=== PATIENT | male | born 1985 | race Caucasian/White ===

== ENCOUNTER 2023-05-25 20:54 | Inpatient (IN) | payer MEDICARE, MEDICAID ==
[~2023-05-25] VITALS: Ht 167.6 cm; Wt 99.1 kg
[~2023-05-25 20:54] MED LIST: ATOR10TA69 PO; DILT-95 PO; DIVA250T4 PO; FENO160T11 PO; FOLI-130 PO; LEVE1000 PO; METO25XL PO; MVITFE; QUET100T PO
[2023-05-25] MEDS ORDERED: ACETAMINOPHEN 325 MG TABLET PO ONE (23:15)
[2023-05-26] MEDS ORDERED: HALOPERIDOL 5 MG TABLET PO PRN (00:15)
[2023-05-26] MEDS ORDERED: ZOLPIDEM TARTRATE 10 MG TABLET PO PRN (00:15)
[2023-05-26] MEDS ORDERED: LORazepam 1 MG TABLET PO PRN (00:15)
[2023-05-26] MEDS ORDERED: ONDANSETRON HCL 4 MG/2 ML VIAL IVP PRN (02:00)
[2023-05-26] MEDS: HEPARIN SODIUM,PORCINE 5,000 UNITS/ML VIAL SQ SCH ×3 (08:55→23:50)
[2023-05-26] MEDS: DOCUSATE SODIUM 100 MG CAPSULE PO SCH ×2 (08:55→21:15)
[2023-05-26] MEDS: ACETAMINOPHEN 325 MG TABLET PO PRN ×3 (10:41→21:54)
[2023-05-26 10:50] LABS: BASOPHILS % (AUTO) 0.3 % (0.0-2.0); EOSINOPHILS % (AUTO) 1.6 % (1.0-6.0); HEMATOCRIT 41.7 % (41-53); HEMOGLOBIN 13.4 g/dL (13.5-17.5); LYMPHOCYTES # (AUTO) 1.3 K/uL (1.0-4.8); LYMPHOCYTES % (AUTO) 19.2 % (22.0-44.0); MEAN CORPUSCULAR HEMOGLOBIN 28.5 pg (26.0-34.0); MEAN CORPUSCULAR HGB CONC 32.2 G/dL (31.0-37.0); MEAN CORPUSCULAR VOLUME 89 fL (80-100); MONOCYTES # (AUTO) 0.5 K/uL (0.1-1.0); MONOCYTES % (AUTO) 8.1 % (2.0-9.0); NEUTROPHILS # (AUTO) 4.6 K/uL (1.8-7.7); NEUTROPHILS % (AUTO) 70.8 % (40.0-70.0); PLATELET COUNT (AUTO) 226 K/uL (150-450); RED BLOOD CELL COUNT(AUTO) 4.71 MIL/uL (4.50-5.90); RED CELL DISTRIBUTION WIDTH 17.8 % (11.5-14.5)
[2023-05-26 10:55] LABS: AMPHET/METH SCREEN,URINE NEGATIVE (NEGATIVE); BARBITURATE SCREEN, URINE NEGATIVE (NEGATIVE); BENZODIAZEPINES SCREEN,URINE NEGATIVE (NEGATIVE); CANNABINOID SCREEN,URINE NEGATIVE (NEGATIVE); COCAINE SCREEN,URINE NEGATIVE (NEGATIVE); METHADONE SCREEN, URINE NEGATIVE (NEGATIVE); OPIATE SCREEN,URINE NEGATIVE (NEGATIVE); PHENCYCLIDINE SCREEN,URINE NEGATIVE (NEGATIVE)
[2023-05-26 11:02] LABS: ANION GAP 12 mmol/L (8-16); CALCIUM, TOTAL 9.2 mg/dL (8.8-10.5); CARBON DIOXIDE 24 mmol/L (22-29); CHLORIDE 101 mmol/L (98-107); CREATININE 0.45 mg/dL (0.60-1.30); GLOMERULAR FILTR. RATE CALC > 60 mL/min (>60); GLUCOSE,RANDOM 260 mg/dL (70-110); POTASSIUM 3.8 mmol/L (3.5-5.1); SODIUM SERUM 137 mmol/L (136-145)
[2023-05-26 11:07] LABS: ALANINE AMINOTRANSFERASE 19 U/L (12-78); ALBUMIN 2.9 g/dL (3.4-5.0); ALKALINE PHOSPHATASE 78 U/L (46-116); ASPARTATE AMINOTRANSFERASE 23 U/L (15-37); BILIRUBIN,TOTAL 0.2 mg/dL (0.1-1.0)
[2023-05-26] MEDS ORDERED: MULT-1390 PO (13:51)
[2023-05-26] MEDS ORDERED: QUET200T PO (13:51)
[2023-05-26] MEDS ORDERED: DIVA-112 PO (13:51)
[2023-05-26] MEDS ORDERED: FERR325T23 PO (13:51)
[2023-05-26] MEDS: ONDANSETRON HCL 4 MG TABLET PO PRN (13:58)
[2023-05-26] MEDS ORDERED: ONDANSETRON HCL 4 MG/2 ML VIAL PO PRN (14:00)
[2023-05-26 20:30] VITALS: BP 110/78; PULSE 108; RESP 20; TEMP 97.6
[2023-05-27] MEDS: ONDANSETRON HCL 4 MG TABLET PO PRN ×2 (02:50→11:33)
[2023-05-27 02:55] VITALS: BP 124/74; PULSE 96; RESP 20; TEMP 98.6
[2023-05-27 07:40] VITALS: BP 126/77; PULSE 106; RESP 18; TEMP 98.4
[2023-05-27] MEDS: HEPARIN SODIUM,PORCINE 5,000 UNITS/ML VIAL SQ SCH ×4 (08:00→23:45)
[2023-05-27] MEDS: DOCUSATE SODIUM 100 MG CAPSULE PO SCH ×2 (08:00→20:14)
[2023-05-27] MEDS: ACETAMINOPHEN 325 MG TABLET PO PRN ×2 (08:00→23:34)
[2023-05-27] MEDS: HYDROGEN PEROXIDE 473 ML SOLUTION TP SCH (08:05)
[2023-05-27] MEDS: BACITRACIN 28 GM OINTMENT TP SCH (08:05)
[2023-05-27] MEDS: POVIDONE-IODINE 10% 120 ML SOLUTION TP SCH (08:05)
[2023-05-27] MEDS ORDERED: DEXTROSE 50%-WATER 25 GM/50 ML SYRINGE IVP PRN (12:15)
[2023-05-27 15:25] VITALS: BP 122/72; PULSE 94; RESP 20; TEMP 97.8
[2023-05-27] MEDS: INSULIN LISPRO 100 UNITS/ML SQ PRN ×2 (17:21→20:14)
[2023-05-27 17:46] LABS: GLUCOMETER DEV NAME(LOC) 4E.2
[2023-05-27 19:30] VITALS: BP 130/87; PULSE 107; RESP 20; TEMP 97.7
[2023-05-27] MEDS: DiphenhydrAMINE HCL 25 MG CAPSULE PO PRN (21:58)
[2023-05-28] MEDS ORDERED: HALOPERIDOL LACTATE 5 MG/ML VIAL IM ONE (02:15)
[2023-05-28 04:00] VITALS: BP 107/64; PULSE 84; RESP 18; TEMP 97.5
[2023-05-28 06:36] LABS: GLUCOMETER DEV NAME(LOC) 4E.2
[2023-05-28] MEDS: HEPARIN SODIUM,PORCINE 5,000 UNITS/ML VIAL SQ SCH ×2 (07:31→15:17)
[2023-05-28] MEDS: DOCUSATE SODIUM 100 MG CAPSULE PO SCH ×2 (07:31→20:14)
[2023-05-28] MEDS: POVIDONE-IODINE 10% 120 ML SOLUTION TP SCH (07:32)
[2023-05-28] MEDS: BACITRACIN 28 GM OINTMENT TP SCH (07:32)
[2023-05-28] MEDS: HYDROGEN PEROXIDE 473 ML SOLUTION TP SCH (07:32)
[2023-05-28 08:00] VITALS: BP 122/80; PULSE 95; RESP 20; TEMP 97.7
[2023-05-28 08:06] LABS: GLUCOMETER DEV NAME(LOC) 6N.1
[2023-05-28] MEDS: ACETAMINOPHEN 325 MG TABLET PO PRN ×2 (08:24→17:31)
[2023-05-28] MEDS: DiphenhydrAMINE HCL 25 MG CAPSULE PO PRN ×2 (10:56→17:31)
[2023-05-28] MEDS: INSULIN LISPRO 100 UNITS/ML SQ PRN ×3 (11:24→20:21)
[2023-05-28 11:36] LABS: GLUCOMETER DEV NAME(LOC) 4E.2
[2023-05-28 18:11] LABS: GLUCOMETER DEV NAME(LOC) 4E.2
[2023-05-28 19:20] VITALS: BP 136/74; PULSE 107; RESP 20; TEMP 98.4
[2023-05-28] MEDS: DIVALPROEX SODIUM 500 MG DR TABLET PO SCH (20:14)
[2023-05-28] MEDS: QUEtiapine FUMARATE 200 MG TABLET PO SCH (20:14)
[2023-05-28] MEDS: LITHIUM CARBONATE 300 MG CAPSULE PO SCH (20:15)
[2023-05-29] MEDS: HEPARIN SODIUM,PORCINE 5,000 UNITS/ML VIAL SQ SCH ×3 (00:34→16:00)
[2023-05-29] MEDS ORDERED: HALOPERIDOL LACTATE 5 MG/ML VIAL IM ONE (01:00)
[2023-05-29] MEDS ORDERED: LORazepam 2 MG/ML VIAL IM ONE (01:00)
[2023-05-29] MEDS ORDERED: SODIUM CHLORIDE 0.9% 1,000 ML ONE (01:48)
[2023-05-29] MEDS ORDERED: SODIUM CHLORIDE 0.9% 500 ML IV ONE ×2 (01:51→02:30)
[2023-05-29] MEDS ORDERED: LevETIRAcetam 1,000 MG in DEXTROSE 5%-WATER 100 ML IV SCH ×2 (02:00→14:00)
[2023-05-29] MEDS ORDERED: LevETIRAcetam 1,500 MG in DEXTROSE 5%-WATER 100 ML IV ONE (02:15)
[2023-05-29] MEDS: ACETAMINOPHEN 325 MG TABLET PO PRN ×3 (02:36→15:32)
[2023-05-29 02:43] VITALS: BP 115/63; PULSE 113; RESP 20
[2023-05-29] MEDS ORDERED: LORazepam 2 MG/ML VIAL IVP ONE ×2 (03:00→16:30)
[2023-05-29 06:06] VITALS: BP 106/55; PULSE 88; RESP 20; TEMP 97.9
[2023-05-29 08:13] VITALS: BP 118/69; PULSE 92; RESP 18; TEMP 97.6
[2023-05-29] MEDS: DOCUSATE SODIUM 100 MG CAPSULE PO SCH (09:42)
[2023-05-29] MEDS: HYDROGEN PEROXIDE 473 ML SOLUTION TP SCH (09:43)
[2023-05-29] MEDS: DIVALPROEX SODIUM 500 MG DR TABLET PO SCH (09:43)
[2023-05-29] MEDS: QUEtiapine FUMARATE 200 MG TABLET PO SCH (09:43)
[2023-05-29] MEDS: LITHIUM CARBONATE 300 MG CAPSULE PO SCH (09:43)
[2023-05-29] MEDS: POVIDONE-IODINE 10% 120 ML SOLUTION TP SCH (09:44)
[2023-05-29] MEDS: BACITRACIN 28 GM OINTMENT TP SCH (09:44)
[2023-05-29 11:51] LABS: GLUCOMETER DEV NAME(LOC) 6N.2B
[2023-05-29 11:51] LABS: GLUCOMETER DEV NAME(LOC) 6N.2B
[2023-05-29 11:53] VITALS: BP 108/70; PULSE 101; RESP 18; TEMP 98.1
[2023-05-29] MEDS: INSULIN LISPRO 100 UNITS/ML SQ PRN (12:09)
[2023-05-29 12:56] LABS: GLUCOMETER DEV NAME(LOC) 5S.2C
[2023-05-29] MEDS ORDERED: SODIUM CHLORIDE 0.9% 250 ML IV ONE (14:08)
[2023-05-29] MEDS ORDERED: QUET200T PO (15:03)
[2023-05-29] MEDS ORDERED: LITH300C3 PO ×2 (15:06→21:26)
[2023-05-29] MEDS ORDERED: QUET200T30 PO (21:26)
[2023-05-29] MEDS ORDERED: DIVA-112 PO (21:26)
== END 2023-05-29 17:00 | disposition home health service (06) | DRG 885 ==
LOC: EMS 20:55 → AHU 05-26 08:03 → 6N 05-26 18:01 → 5S 05-29 04:00
PROVIDERS: ADMIT Psychiatry & Neurology Psychiatry; ATTEND Psychiatry & Neurology Psychiatry
DX: F25.9 Schizoaffective disorder, unspecified (principal); G82.20 Paraplegia, unspecified; R45.851 Suicidal ideations; R45.850 Homicidal ideations; F32.9 Major depressive disorder, single episode, unspecified; Z93.3 Colostomy status; E66.9 Obesity, unspecified; Z68.35 Body mass index [BMI] 35.0-35.9, adult; R06.82 Tachypnea, not elsewhere classified; E11.9 Type 2 diabetes mellitus without complications; I10 Essential (primary) hypertension; G40.909 Epilepsy, unspecified, not intractable, without status epilepticus; L89.90 Pressure ulcer of unspecified site, unspecified stage; E78.00 Pure hypercholesterolemia, unspecified; Z74.01 Bed confinement status; Z79.899 Other long term (current) drug therapy; Z98.1 Arthrodesis status
CPT/HCPCS: 70450; 80053; 80307; 82140; 82962; 83036; 85025; 87081; 99285; G0480; J0712; J1630; J1644; J2060; J7030; J7040; J7050; J7060; Q0162

== ENCOUNTER 2023-11-14 11:59 | Emergency (ER) | payer MEDICARE, MEDICAID ==
[~2023-11-14] VITALS: Ht 170.2 cm; Wt 86.4 kg
[~2023-11-14 11:59] MED LIST changes: -ATOR10TA69 PO; -DILT-95 PO; +DIVA-112 PO; -DIVA250T4 PO; -FENO160T11 PO; -FOLI-130 PO; +LITH300C3 PO; -METO25XL PO; +MULT-1390 PO; -MVITFE; -QUET100T PO; +QUET200T PO; +QUET200T30 PO
[2023-11-14 12:08] VITALS: TEMP 97.9
[2023-11-14 12:38] LABS: BASOPHILS % (AUTO) 0.3 % (0.0-2.0); EOSINOPHILS % (AUTO) 1.6 % (1.0-6.0); HEMATOCRIT 42.8 % (41-53); HEMOGLOBIN 14.2 g/dL (13.5-17.5); LYMPHOCYTES # (AUTO) 1.2 K/uL (1.0-4.8); LYMPHOCYTES % (AUTO) 22.4 % (22.0-44.0); MEAN CORPUSCULAR HEMOGLOBIN 29.8 pg (26.0-34.0); MEAN CORPUSCULAR HGB CONC 33.3 G/dL (31.0-37.0); MEAN CORPUSCULAR VOLUME 90 fL (80-100); MONOCYTES # (AUTO) 0.4 K/uL (0.1-1.0); MONOCYTES % (AUTO) 7.3 % (2.0-9.0); NEUTROPHILS # (AUTO) 3.6 K/uL (1.8-7.7); NEUTROPHILS % (AUTO) 68.4 % (40.0-70.0); PLATELET COUNT (AUTO) 194 K/uL (150-450); RED BLOOD CELL COUNT(AUTO) 4.77 MIL/uL (4.50-5.90); WHITE BLOOD COUNT (AUTO) 5.3 K/uL (4.5-11.0)
[2023-11-14 12:46] LABS: ANION GAP 7 mmol/L (8-16); CALCIUM, TOTAL 9.7 mg/dL (8.8-10.5); CARBON DIOXIDE 29 mmol/L (22-29); CHLORIDE 102 mmol/L (98-107); CREATININE 0.48 mg/dL (0.60-1.30); GLOMERULAR FILTR. RATE CALC > 60 mL/min (>60); GLUCOSE,RANDOM 102 mg/dL (70-110); POTASSIUM 3.8 mmol/L (3.5-5.1); SODIUM SERUM 138 mmol/L (136-145); UREA NITROGEN, BLOOD 11 mg/dL (7-18)
[2023-11-14 12:51] LABS: ALANINE AMINOTRANSFERASE 26 U/L (12-78); ALBUMIN 3.2 g/dL (3.4-5.0); ALKALINE PHOSPHATASE 79 U/L (46-116); ASPARTATE AMINOTRANSFERASE 33 U/L (15-37); BILIRUBIN,TOTAL 0.3 mg/dL (0.1-1.0); TOTAL PROTEIN, SERUM 8.7 g/dL (6.4-8.2)
[2023-11-14 13:18] LABS: ALCOHOL, BLOOD (SERUM) < 3 mg/dL (0-10); LITHIUM < 0.20 mmol/L (0.60-1.20)
[2023-11-14 14:33] VITALS: BP 129/78; PULSE 89; RESP 16
== END 2023-11-14 15:06 | disposition home or self-care (01) ==
LOC: EMS 12:29
DX: L89.159 Pressure ulcer of sacral region, unspecified stage (principal); I10 Essential (primary) hypertension; F20.9 Schizophrenia, unspecified; Z98.890 Other specified postprocedural states
CPT/HCPCS: 99283; 80053; 80164; 80178; 85025; 36415; G0480

== ENCOUNTER 2023-12-02 16:05 | Emergency (ER) | payer MEDICARE, MEDICAID ==
[~2023-12-02 16:05] MED LIST changes: -QUET200T30 PO
== END 2023-12-02 16:06 | disposition left against medical advice (07) ==
LOC: EMS 16:06
DX: Z53.21 Procedure and treatment not carried out due to patient leaving prior to being seen by health care provider (principal)

== ENCOUNTER 2023-12-02 16:13 | Inpatient (IN) | payer MEDICARE, MEDICAID ==
[~2023-12-02] VITALS: Ht 175.3 cm; Wt 100.0 kg
[2023-12-02 17:03] LABS: BASOPHILS % (AUTO) 0.4 % (0.0-2.0); EOSINOPHILS % (AUTO) 0.4 % (1.0-6.0); HEMATOCRIT 42.7 % (41-53); HEMOGLOBIN 13.9 g/dL (13.5-17.5); LYMPHOCYTES # (AUTO) 1.4 K/uL (1.0-4.8); LYMPHOCYTES % (AUTO) 20.2 % (22.0-44.0); MEAN CORPUSCULAR HEMOGLOBIN 29.7 pg (26.0-34.0); MEAN CORPUSCULAR HGB CONC 32.6 G/dL (31.0-37.0); MEAN CORPUSCULAR VOLUME 91 fL (80-100); MONOCYTES # (AUTO) 0.4 K/uL (0.1-1.0); PLATELET COUNT (AUTO) 252 K/uL (150-450); RED CELL DISTRIBUTION WIDTH 17.6 % (11.5-14.5); WHITE BLOOD COUNT (AUTO) 6.8 K/uL (4.5-11.0)
[2023-12-02 17:05] LABS: ANION GAP 8 mmol/L (8-16); CALCIUM, TOTAL 9.8 mg/dL (8.8-10.5); CARBON DIOXIDE 28 mmol/L (22-29); CHLORIDE 104 mmol/L (98-107); CREATININE 0.53 mg/dL (0.60-1.30); GLOMERULAR FILTR. RATE CALC > 60 mL/min (>60); GLUCOSE,RANDOM 142 mg/dL (70-110); POTASSIUM 4.1 mmol/L (3.5-5.1); SODIUM SERUM 140 mmol/L (136-145); UREA NITROGEN, BLOOD 15 mg/dL (7-18)
[2023-12-02 17:13] LABS: ALANINE AMINOTRANSFERASE 13 U/L (12-78); ALBUMIN 3.2 g/dL (3.4-5.0); ALKALINE PHOSPHATASE 75 U/L (46-116); ASPARTATE AMINOTRANSFERASE 16 U/L (15-37); BILIRUBIN,TOTAL 0.2 mg/dL (0.1-1.0); TOTAL PROTEIN, SERUM 8.4 g/dL (6.4-8.2)
[2023-12-02 17:25] LABS: ALCOHOL, BLOOD (SERUM) < 3 mg/dL (0-10)
[2023-12-02] MEDS ORDERED: HALOPERIDOL 5 MG TABLET PO PRN (17:30)
[2023-12-02] MEDS ORDERED: LORazepam 2 MG TABLET PO PRN (17:30)
[2023-12-02] MEDS ORDERED: ZOLPIDEM TARTRATE 10 MG TABLET PO PRN (17:30)
[2023-12-02 19:18] LABS: COVID AG,FIA SOURCE NASAL SWAB
[2023-12-02 19:46] LABS: SARS-COV2 (COVID) ANTIGEN,FIA Negative (Negative)
[2023-12-02] MEDS ORDERED: ACETAMINOPHEN 500 MG TABLET PO ONE (20:00)
[2023-12-03] MEDS ORDERED: MAGNESIUM HYDROXIDE SUSPENSION 30 ML UDCUP PO PRN (15:30)
[2023-12-03] MEDS ORDERED: ONDANSETRON HCL 4 MG/2 ML VIAL IVP PRN (15:30)
[2023-12-03 17:47] LABS: APPEARANCE,URINE CLEAR (CLEAR); BILIRUBIN,URINE NEGATIVE (NEGATIVE); COLOR,URINE LIGHT YELLOW (YELLOW); GLUCOSE, URINE (UA) 70-100 mg/dL (NEGATIVE); KETONES,URINE NEGATIVE (NEGATIVE); LEUKOCYTE ESTERASE ,URINE NEGATIVE (NEGATIVE); NITRATE,URINE NEGATIVE (NEGATIVE); OCCULT BLOOD,URINE TRACE (NEGATIVE); PROTEIN,URINE NEGATIVE (NEGATIVE); UROBILINOGEN,URINE <=1.0 mg/dL (<=1.0)
[2023-12-03 17:54] LABS: ALCOHOL, URINE DRUG SCREEN NEGATIVE (NEGATIVE); AMPHET/METH SCREEN,URINE NEGATIVE (NEGATIVE); BARBITURATE SCREEN, URINE NEGATIVE (NEGATIVE); BENZODIAZEPINES SCREEN,URINE NEGATIVE (NEGATIVE); CANNABINOID SCREEN,URINE POSITIVE (NEGATIVE); COCAINE SCREEN,URINE NEGATIVE (NEGATIVE); METHADONE SCREEN, URINE NEGATIVE (NEGATIVE); OPIATE SCREEN,URINE NEGATIVE (NEGATIVE); PHENCYCLIDINE SCREEN,URINE NEGATIVE (NEGATIVE)
[2023-12-03 18:34] LABS: BACTERIA,URINE None Seen /HPF (None Seen); RBC,URINE None Seen /HPF (0-2); WBC,URINE None Seen /HPF (0-5)
[2023-12-03 20:23] VITALS: BP 126/82; PULSE 111; RESP 20; TEMP 97.9
[2023-12-03] MEDS: OxyCODONE HCL/ACETAMINOPHEN 5-325 MG TABLET PO PRN (21:16)
[2023-12-03] MEDS: DOCUSATE SODIUM 100 MG CAPSULE PO SCH (21:16)
[2023-12-04] MEDS: ZOLPIDEM TARTRATE 5 MG TABLET PO PRN ×2 (00:44→23:01)
[2023-12-04] MEDS: ACETAMINOPHEN 325 MG TABLET PO PRN ×3 (02:19→21:32)
[2023-12-04 04:00] VITALS: BP 132/84; PULSE 93; RESP 20; TEMP 97.6
[2023-12-04] MEDS: HEPARIN SODIUM,PORCINE 5,000 UNITS/ML VIAL SQ SCH ×4 (08:39→23:06)
[2023-12-04] MEDS: FAMOTIDINE 20 MG TABLET PO SCH (08:39)
[2023-12-04] MEDS: DOCUSATE SODIUM 100 MG CAPSULE PO SCH ×2 (08:39→20:50)
[2023-12-04] MEDS: MULTIVITAMINS WITH MINERALS, THERAPEUTIC TABLET PO SCH ×2 (08:39→09:00)
[2023-12-04 09:16] VITALS: BP 128/78; PULSE 89; RESP 19; TEMP 97.8
[2023-12-04] MEDS: OxyCODONE HCL/ACETAMINOPHEN 5-325 MG TABLET PO PRN (13:21)
[2023-12-04 16:23] VITALS: BP 127/83; PULSE 113; RESP 19; TEMP 97.8
[2023-12-04 19:30] VITALS: BP 137/86; PULSE 110; RESP 18; TEMP 97.7
[2023-12-05 06:31] VITALS: BP 125/78; PULSE 97; RESP 18; TEMP 98.3
[2023-12-05] MEDS: HEPARIN SODIUM,PORCINE 5,000 UNITS/ML VIAL SQ SCH ×2 (08:58→17:41)
[2023-12-05] MEDS: MULTIVITAMINS WITH MINERALS, THERAPEUTIC TABLET PO SCH ×2 (09:00→09:01)
[2023-12-05] MEDS: FAMOTIDINE 20 MG TABLET PO SCH (09:01)
[2023-12-05] MEDS: DOCUSATE SODIUM 100 MG CAPSULE PO SCH (09:01)
[2023-12-05 09:13] VITALS: BP 139/80; PULSE 113; RESP 19; TEMP 97.9
[2023-12-05] MEDS: ACETAMINOPHEN 325 MG TABLET PO PRN (09:41)
[2023-12-05 15:27] VITALS: BP 134/83; PULSE 109; RESP 18; TEMP 98.4
[2023-12-05 19:15] VITALS: BP 130/80; PULSE 107; RESP 20; TEMP 97.8
== END 2023-12-05 20:03 | disposition home or self-care (01) | DRG 885 ==
LOC: EMS 16:15 → 3EI 12-03 13:30 → 6S 12-03 18:42
PROVIDERS: ADMIT Psychiatry & Neurology Psychiatry; ATTEND Internal Medicine
DX: F25.9 Schizoaffective disorder, unspecified (principal); G82.50 Quadriplegia, unspecified; L89.153 Pressure ulcer of sacral region, stage 3; L89.313 Pressure ulcer of right buttock, stage 3; L89.893 Pressure ulcer of other site, stage 3; R45.851 Suicidal ideations; E78.00 Pure hypercholesterolemia, unspecified; Z20.822 Contact with and (suspected) exposure to COVID-19; G40.909 Epilepsy, unspecified, not intractable, without status epilepticus; I10 Essential (primary) hypertension; F41.9 Anxiety disorder, unspecified; Z87.440 Personal history of urinary (tract) infections; Z87.820 Personal history of traumatic brain injury; Z98.2 Presence of cerebrospinal fluid drainage device; Z93.3 Colostomy status; Z98.1 Arthrodesis status
CPT/HCPCS: 80053; 80178; 80307; 81001; 85025; 99285; G0480; J1644

== ENCOUNTER 2025-04-26 16:37 | Emergency (ER) | payer MEDICARE, MEDICAID ==
[~2025-04-26] VITALS: Ht 175.3 cm; Wt 79.1 kg
[~2025-04-26 16:37] MED LIST changes: +ASCO500 PO; +CLIN300C58 PO; +LEVE-71 PO; +METF-1211 PO; +METO25 PO; -MULT-1390 PO; +MULT-14 PO; +OXYB5 PO; +RIVA20TA PO; +ZINC50CA3 PO
[2025-04-26 20:23] LABS: COVID AG,FIA SOURCE NASAL SWAB
[2025-04-26 20:39] LABS: SARS-COV2 (COVID) ANTIGEN,FIA Negative (Negative)
[2025-04-26] MEDS: LORazepam 2 MG TABLET PO ONE (21:10)
[2025-04-26] MEDS: QUEtiapine FUMARATE 100 MG TABLET PO ONE (21:11)
[2025-04-26 21:53] VITALS: BP 118/75; PULSE 110; RESP 18; TEMP 98.305304; O2SAT 99
== END 2025-04-26 22:00 | disposition home or self-care (01) ==
LOC: EMS 16:37
DX: F98.9 Unspecified behavioral and emotional disorders with onset usually occurring in childhood and adolescence (principal); G82.20 Paraplegia, unspecified; F41.9 Anxiety disorder, unspecified; F32.A Depression, unspecified; F20.9 Schizophrenia, unspecified; E78.00 Pure hypercholesterolemia, unspecified; I10 Essential (primary) hypertension; Z93.3 Colostomy status; Z98.890 Other specified postprocedural states; Z87.820 Personal history of traumatic brain injury; Z91.011 Allergy to milk products; Z79.899 Other long term (current) drug therapy; Z20.822 Contact with and (suspected) exposure to COVID-19
CPT/HCPCS: 99285; Z7502; Z7610

== ENCOUNTER 2025-05-02 23:34 | Emergency (ER) | payer MEDICARE, MEDICAID ==
[~2025-05-02] VITALS: Ht 170.2 cm; Wt 81.8 kg
[2025-05-02 23:36] VITALS: BP 130/89; PULSE 82; RESP 16; TEMP 97.605248; O2SAT 99
[2025-05-03] MEDS: LORazepam 1 MG TABLET PO ONE (00:10)
== END 2025-05-03 02:34 | disposition home or self-care (01) ==
LOC: EMS 23:34
DX: F20.9 Schizophrenia, unspecified (principal); F41.9 Anxiety disorder, unspecified; F32.A Depression, unspecified; E78.00 Pure hypercholesterolemia, unspecified; I10 Essential (primary) hypertension; Z98.2 Presence of cerebrospinal fluid drainage device; Z79.899 Other long term (current) drug therapy; Z98.890 Other specified postprocedural states; Z65.3 Problems related to other legal circumstances; Z91.011 Allergy to milk products
CPT/HCPCS: 99285; Z7502; Z7610

== ENCOUNTER 2025-05-28 21:20 | Emergency (ER) | payer MEDICARE, MEDICAID ==
[~2025-05-28] VITALS: Ht 170.2 cm; Wt 90.9 kg
[2025-05-28 21:22] VITALS: TEMP 97.6
[2025-05-28 21:53] LABS: PLATELET COUNT (AUTO) 273 K/uL (150-450); RED BLOOD CELL COUNT(AUTO) 4.90 MIL/uL (4.50-5.90); RED CELL DISTRIBUTION WIDTH 18.6 % (11.5-14.5); WHITE BLOOD COUNT (AUTO) 5.6 K/uL (4.5-11.0)
[2025-05-28 22:00] LABS: CALCIUM, TOTAL 9.6 mg/dL (8.8-10.5); CREATININE 0.55 mg/dL (0.60-1.30); GLOMERULAR FILTR. RATE CALC > 60 mL/min (>60); GLUCOSE,RANDOM 90 mg/dL (70-110); SODIUM SERUM 143 mmol/L (136-145); UREA NITROGEN, BLOOD 12 mg/dL (7-18)
[2025-05-28 22:04] LABS: VALPROIC ACID 42 mcg/mL (50-100)
[2025-05-28 22:05] LABS: ALCOHOL, BLOOD (SERUM) < 3 mg/dL (0-10)
[2025-05-28 22:20] LABS: COVID AG,FIA SOURCE NPH
[2025-05-28 22:51] LABS: SARS-COV2 (COVID) ANTIGEN,FIA Negative (Negative)
[2025-05-29 09:00] VITALS: BP 125/96; PULSE 99; RESP 18; O2SAT 99
== END 2025-05-29 09:51 | disposition home or self-care (01) ==
LOC: EMS 21:20
DX: F20.9 Schizophrenia, unspecified (principal); F41.9 Anxiety disorder, unspecified; F32.A Depression, unspecified; E78.00 Pure hypercholesterolemia, unspecified; I10 Essential (primary) hypertension; G82.20 Paraplegia, unspecified; Z98.2 Presence of cerebrospinal fluid drainage device; Z79.899 Other long term (current) drug therapy; Z98.890 Other specified postprocedural states; Z20.822 Contact with and (suspected) exposure to COVID-19
CPT/HCPCS: 99285; 87426; 80048; 80164; 80178; 85025; 36415; G0480